=== PATIENT | female | born 1955 | race Caucasian/White ===

== ENCOUNTER → 2017-01-29 | Outpatient (CLI) | payer OTHER | END | disposition home or self-care (01) | LOC: RAD.S 01-26 11:10 | DX: Z12.31 Encounter for screening mammogram for malignant neoplasm of breast (principal); R19.8 Other specified symptoms and signs involving the digestive system and abdomen; R10.2 Pelvic and perineal pain; N83.202 Unspecified ovarian cyst, left side; Z90.710 Acquired absence of both cervix and uterus ==

== ENCOUNTER 2017-02-19 11:18 | Emergency (ER) | payer OTHER ==
--- NOTE | 2017-03-11 15:42 | ER ---
ADMIT: 02/19/2017 RM/LOC: ER [facility] MR#: [id number] [id number] [place] [id number] [address] Emergency Room Report SEX: F AGE: 61 : 1955 DATE: 02/19/2017 ADDENDUM: Regular physician is Dr. Quiros. This patient comes to the ER because she has had a rash on and off for the last few months. She is currently seen a assessment director where they did a skin biopsy, and she is awaiting the results. She also has an appointment to see an trim technician. Over the last 5 days, she has noticed increased itching and the rash that she has had and today it became bright red especially around both of her elbows. PHYSICAL EXAMINATION: She does have a dry scaly rash on her upper extremities. There are some areas of redness all around it, which are consistent with probably having hives. On top of the rash that she currently has, she has no difficulty breathing and her lungs are clear. IV normal saline was started. She was given Benadryl and Decadron. She did feel like the sharp redness and itching had been reduced. We will write a prescription for prednisone. She can continue with Benadryl, and she is to keep her appointment with the trim technician and the assessment director. Please see my T sheet. LORI Shultz / Markell Bhat MD / yasminl JOB #: [id number] CC: Markell Bhat MD, Attending Physician
== END 2017-02-19 13:40 | disposition home or self-care (01) ==
LOC: ER 11:18
DX: R21 Rash and other nonspecific skin eruption (principal); F41.9 Anxiety disorder, unspecified; Z79.899 Other long term (current) drug therapy